=== PATIENT | female | born 1935 | race Caucasian/White ===

== ENCOUNTER 2022-09-14 01:45 | Emergency (ER) | payer MEDICARE ==
[2022-09-14] VITALS (25 sets, daily range): BP systolic 66–101; BP diastolic 35–60
[~2022-09-14] VITALS: Ht 167.6 cm; Wt 57.0 kg
[2022-09-14 02:14] LABS: BASO% 0.1 % (0-3); HEMATOCRIT 44.7 % (37.0-47.0); HEMOGLOBIN 13.8 g/dl (12.0-16.0); IMMATURE GRANULOCYTES 0.8 % (0.0-5.0); LYMPH% 8.2 % (15-41); MEAN CELL VOLUME 93.1 fL CALC (80.0-100.0); MEAN CORPUSCULAR HGB 28.8 pG CALC (26.0-32.0); MEAN CORPUSCULAR HGB CONC 30.9 g/dL CAL (32.0-36.0); NEUT# 12.68 thou/uL (2.00-7.15); NEUT% 83.9 % (42-76); RED BLOOD COUNT 4.8 mill/uL (4.20-5.60); RED CELL DISTRI WIDTH 13.8 % (11.5-15.5)
[2022-09-14 02:22] LABS: ALBUMIN 3.6 g/dL (3.2-5.0); BILIRUBIN, TOTAL 0.7 mg/dL (0.02-1.3); CREATININE 1.5 mg/dL (0.5-1.0); POTASSIUM 3.5 mmol/l (3.5-5.1); TOTAL PROTEIN 7.4 g/dL (6.3-8.2)
[2022-09-14] MEDS ORDERED: COREG12.5 MG PO ×2 (03:14→03:17)
[2022-09-14] MEDS ORDERED: CRESTOR10 MG PO (03:15)
[2022-09-14] MEDS ORDERED: ZESTORETIC 10-11 TAB PO (03:15)
[2022-09-14] MEDS ORDERED: THEO-24200 MG PO (03:16)
[2022-09-14] MEDS ORDERED: ATIVAN0.5 MG PO (03:17)
[2022-09-14] MEDS ORDERED: CRESTOR20 MG PO (03:17)
[2022-09-14] MEDS ORDERED: VENTOLIN HFA108 MCG IN (03:19)
== END 2022-09-14 06:45 | disposition short-term general hospital (02) ==
LOC: ED 01:45
PROVIDERS: Emergency Medicine
DX: S72.012A Unspecified intracapsular fracture of left femur, initial encounter for closed fracture (principal); J44.1 Chronic obstructive pulmonary disease with (acute) exacerbation; I95.9 Hypotension, unspecified; I71.40 Abdominal aortic aneurysm, without rupture, unspecified; I10 Essential (primary) hypertension; W07.XXXA Fall from chair, initial encounter; Y92.009 Unspecified place in unspecified non-institutional (private) residence as the place of occurrence of the external cause